=== PATIENT | male | born 1975 | race Caucasian/White ===

== ENCOUNTER 2023-03-11 19:39 | Emergency (ER) | payer OTHER ==
[2023-03-11 19:54] VITALS: BP 137/85; PULSE 73; RESP 18; TEMP 98.3; BMI 25.0
[2023-03-11] MEDS ORDERED: ACETAMINOPHEN 500 MG TABLET (FP) PO ONE (20:19)
[2023-03-11] MEDS ORDERED: BACITRACIN ZINC 15 GM TUBE TOPICAL OINTMENT TP ONE (20:22)
[2023-03-11] MEDS ORDERED: DIPHTH,PERTUSS(ACELL),TET 0.5 ML DISP.SYRIN IM ONE ×2 (20:22→20:30)
[2023-03-11] MEDS ORDERED: BACITRACIN ZINC 15 GM TUBE TOPICAL OINTMENT ONE (20:30)
[2023-03-11] MEDS ORDERED: ACETAMINOPHEN 500 MG TABLET (FP) ONE (20:30)
== END 2023-03-11 21:38 | disposition home or self-care (01) ==
LOC: JERFT 19:39 → JER 19:39 → JERFT 21:38
PROC: 3E0234Z Introduction of Serum, Toxoid and Vaccine into Muscle, Percutaneous Approach (ICD-10-PCS; principal; 2023-03-11)
DX: T22.211A Burn of second degree of right forearm, initial encounter (principal); M79.631 Pain in right forearm; M79.89 Other specified soft tissue disorders; X08.8XXA Exposure to other specified smoke, fire and flames, initial encounter; Y27.2XXA Contact with hot fluids, undetermined intent, initial encounter; Y93.89 Activity, other specified; Y92.009 Unspecified place in unspecified non-institutional (private) residence as the place of occurrence of the external cause
CPT/HCPCS: 90471; 90715; 99283-25